=== PATIENT | female | born 1995 | race Caucasian/White ===

== ENCOUNTER 2016-08-27 19:56 | Inpatient (IN) | payer OTHER ==
[~2016-08-27] VITALS: Ht 165.1 cm; Wt 82.7 kg
[2016-08-27 20:00] VITALS: BP 112/78; PULSE 69; RESP 18; O2SAT 96
[2016-08-27 20:34] LABS: BASOPHILS % (AUTO) 0.8 % (0-3); EOSINOPHILS % (AUTO) 2.6 % (0-5); MONOCYTES % (AUTO) 9.8 % (4-12); Mean Corpuscular Hemoglobin 26.2 pg (27.0-35.0); NEUTROPHILS % (AUTO) 62.7 % (40-74); Platelet Count 393 bil/L (150-400)
[2016-08-27 20:58] LABS: Magnesium 2.1 mg/dL (1.6-2.6)
[2016-08-27 21:19] LABS: APPEARANCE,URINE CLEAR (CLEAR,HAZY); COLOR,URINE AMBER (YELLOW); OCCULT BLOOD,URINE NEGATIVE (NEGATIVE); PH,URINE 7.5 (5.0-8.0); UROBILINOGEN,URINE NORMAL (NORMAL)
[2016-08-27 21:20] LABS: ICTOTEST,URINE POSITIVE (Negative)
--- NOTE | 2016-08-27 22:00 | ED.REPORT ---
HPI-Abd Pain F Under 40 Date of Service Aug 27, 2016 ED Provider: Dr. Jason Banuelos D.O. A healthy 20 year old female one month presents to the ED with abdominal pain onset four days ago. The pain radiates to her lower back. Associated symptoms include nausea, vomiting, and decreased urination. The patient denies fever or other symptoms. Nursing Notes Stated Complaint: BACK PAIN Chief Complaint: Female Abdominal Pain Nursing Notes Reviewed: Yes Allergies: Coded Allergies: No Known Allergies (Unverified , 08/27/16) General Time Seen by MD: 22:00 Chief Complaint Abdominal pain Hx Obtained From: Patient Arrived By: Walk-in Sudden in Onset?: No Onset Occurred: 4 days ago Symptom Duration: Since onset Location: : Diffuse (Abdominal) Quality: Painful Radiation: : Back Severity: Current: Moderate Severity: Maximum: Moderate Associated with: Reports: Nausea, Vomiting : 1 Para: 1 Pertinent Negative: Relieved by nothing Recent Healthcare: Recent doctor visit, Recent hospitalization Past Medical History Past Medical History None reported Past Surgical History None reported Smoking History Unknown if Ever Smoker Social History Other Social History: Good social support, Lives with children Ambulatory Status Independent Review of Systems Constitutional: Denies: Fever Respiratory: Denies: Non-productive cough, Shortness of breath GI: Reports: Abdominal pain, Nausea, Vomiting Female: Reports: Urination decreased Musculoskeletal: Reports: Back pain (Lower) Complete sys rev & neg: except as marked. Physical Exam Initial Vital Signs Vital Signs (First) Date Time Temp Pulse Resp B/P Pulse Ox O2 Delivery O2 Flow Rate FiO2 08/27/16 20:00 36.5 69 18 112/78 96 Room Air Initial VS: Reviewed Head / Eyes: Atraumatic, Normocephalic ENT: Conjunctiva normal, No scleral icterus Neck: Supple, Full range of motion Skin: Warm, Dry, No cyanosis Neurologic: Alert, Oriented, Nonfocal Psychiatric: Mood/affect normal, Behavior normal, Normal thought content General/Constitutional: Awake, Alert Distress / Hydration: Positive: Distress moderate Respiratory / Chest: Breath sounds NL, Breath sounds = bilat, No respiratory distress Cardiovascular: Heart rate NL, Regular rhythm, Heart sounds NL Abdomen: Atraumatic, Soft, No distention Tenderness/Guarding/Rebound: Positive: Tender diffuse Back: Full range of motion, Non-tender Interpretation & Diagnostics US ABDOMEN: CONCLUSION: Choledocholithiasis with biliary dilation. Cholelithiasis. No evidence of acute cholecystitis. Transmitted to ED by radiologist Haley Emery M.D. at 08/27/2016 - 11:08:04 PM PDT ------- URINE : Negative URINE DIPSTICK: 1.000 sp gravity 7 pH Trace Protein Normal Glucose +++Moderate Ketones 4mg/dl Urobilinogen ++ Bilirubin Otherwise Negative Lab Results Interpretation Result Diagram: 08/27/16201908/27/162019 Test 08/27/16 20:20 08/27/16 20:45 08/27/16 22:22 White Blood Count 7.4th/mm3 (3.8-10.1) Red Blood Count 4.42mil/mm3 (3.90-5.20) Hemoglobin 11.6g/dL (12.0-15.6) Hematocrit 38.0% (35.0-46.0) Mean Corpuscular Volume 86.0fL (81-100) Mean Corpuscular Hemoglobin 26.2pg (27.0-35.0) Mean Corpuscular Hemoglobin Concent 30.5% (32.0-37.0) Red Cell Distribution Width 14.9% (12.3-15.4) Platelet Count 393bil/L (150-400) Neutrophils (%) (Auto) 62.7% (40-74) Lymphocytes (%) (Auto) 23.8% (14-46) Monocytes (%) (Auto) 9.8% (4-12) Eosinophils (%) (Auto) 2.6% (0-5) Basophils (%) (Auto) 0.8% (0-3) Sodium Level 141mEq/L (134-144) Potassium Level 4.0mEq/L (3.5-5.2) Chloride Level 100mEq/L (97-108) Carbon Dioxide Level 24mmol/L (18-29) Blood Urea Nitrogen 6mg/dL (6-20) Creatinine 0.52mg/dL (0.57-1.00) Estimat Glomerular Filtration Rate 218mL/min (>59) Glucose Level 100mg/dL (60-99) Calcium Level 9.6mg/dL (8.5-10.1) Magnesium Level 2.1mg/dL (1.6-2.6) Total Bilirubin 1.6mg/dL (0.0-1.2) Aspartate Amino Transf (AST/SGOT) 525U/L (0-50) Alanine Aminotransferase (ALT/SGPT) 537U/L (0-32) Alkaline Phosphatase 514U/L (25-150) Total Protein 7.6g/dL (6.4-8.4) Albumin 4.4g/dL (3.4-5.0) Lipase 29U/L (13-60) Urine Color Ronel (YELLOW) Urine Appearance Clear (CLEAR,HAZY) Urine pH 7.5 (5.0-8.0) Urine Specific [place] 1.015 (1.003-1.035) Urine Protein Tracemg/dL (NEG,TRACE) Urine Glucose (UA) 100mg/dL (NEGATIVE) Urine Ketones 40mg/dL (NEGATIVE) Urine Occult Blood Negative (NEGATIVE) Urine Nitrite Negative (NEGATIVE) Urine Bilirubin Moderate (NEGATIVE) Urine Ictotest Positive (Negative) Urine Urobilinogen Normalmg/dL (NORMAL) Urine Leukocyte Esterase Trace (NEGATIVE) Urine RBC 0-2/hpf (0-2) Urine WBC 6-10/hpf (0-5) Urine Epithelial Cells Few/hpf (NONE-MOD) Urine Crystals None seen (NONE SEEN) Urine Bacteria Few/hpf (NONE-FEW) Urine Hyaline Casts None/lpf (NONE) Urine Granular Casts None seen (NONE SEEN) Urine Waxy Casts None seen (NONE SEEN) Urine Red Blood Cell Casts None seen (NONE SEEN) Urine White Blood Cell Casts None seen (NONE SEEN) Urine Mucus Present (None Seen) Urine Trichomonas None seen (NONE SEEN) Urine Yeast None (NONE SEEN) Urinalysis Comment None Urine Culture Reflexed Not indicated HCG Beta Subunit < 0.500mIU/mL Re-Eval/Medical Decision Med Decision/Clinical Course Healthy 20-year-old female . Obstructive jaundice with a common bile duct stone. Consult with surgery appreciated. Recommends for GI and ERCP. Consult with gastroenterology and we will admit to medicine Re-Evaluation/Progress #1: Time of Eval: 22:39 Patient Status: Condition improved, Pain improved Re-Evaluation/Progress Note: Patient rechecked. Her pain has improved. Additional physical exam performed. Re-Evaluation/Progress #2: Time of Eval: 23:22 Patient Status: Condition improved, Pain resolved Re-Evaluation/Progress Note: Patient rechecked. Discussed US results and plan for surgical consult. Re-Evaluation/Progress #3: Time of Eval: 23:38 Re-Evaluation/Progress Note: Patient's pain has returned. Discussed with patient lab and US results, GI and surgical consults, diagnosis, and plan for admit. Patient agrees with plan for care and all questions were addressed. Consultation #1: Referral / Consult Name: Shahriar March MD Consulted With: Surgeon Call Returned at: 23:26 Table Saw Operator: Agrees with eval, Agrees with plan Note: Discussed patient's case. Recommends GI consult. Consultation #2: Referral / Consult Name: Lester Mackenzie MD Call Returned at: 23:35 Table Saw Operator: Will see patient, Agrees with eval, Agrees with plan Note: Discussed patient's case. Consultation #3: Referral / Consult Name: Joao Gorman MD Consulted With: Hospitalist Call Returned at: 23:47 Table Saw Operator: Agrees with eval, Agrees with plan, Accepts admit Counseled Regarding: Diagnosis, Lab results, Need for admission Discharge & Departure Primary Impression: Hepatitis Additional Impressions: Choledocholithiasis Cholelithiasis Cholelithiasis location: gallbladder and bile duct Cholecystitis presence: without cholecystitis Biliary obstruction: with biliary obstruction Qualified Code: K80.71 - Calculus of gallbladder and bile duct without cholecystitis with obstruction Disposition: ADMITTED TO HOSPITAL Discharge Condition All VS Reviewed: Yes Condition: Improved Referrals: OTHER,PHYSICIAN (PCP) (Family) Scribe Attestation Portions of this note were transcribed by Pita Faith. I, Dr. Banuelos, personally performed the history, physical exam, and medical decision-making; I reviewed and confirmed the accuracy of the information in the transcribed note. Signed by: Nadeem Marroquin, 08/28/2016, 01:05 Jason Banuelos DO Aug 27, 2016 22:00 PITA FAITH Aug 27, 2016 22:04
[2016-08-27] MEDS ORDERED: 0.9% Sodium Chloride 1,000 ML IV ONE (22:05)
[2016-08-27] MEDS: Ondansetron 2 mg/mL 2 mL Inj IVPUSH PRN (22:22)
[2016-08-27] MEDS: HYDROmorphone 0.5 mg/0.5 mL iSecure Syringe IVPUSH PRN (22:22)
[2016-08-27] MEDS ORDERED: Piperacillin-Tazo 3.375 Gm Inj 3.375 GM in Dextrose 5% Minibag Plus 50 ML IV ONE (23:50)
[2016-08-28] VITALS (11 sets, daily range): BP systolic 92–125; BP diastolic 53–74; PULSE 50–73; RESP 12–20; O2SAT 64–98
[2016-08-28] MEDS ORDERED: Alum-Mag Hydrox-Simeth 30 mL Suspension PO PRN (00:05)
[2016-08-28] MEDS ORDERED: Ondansetron 2 mg/mL 2 mL Inj IVPUSH PRN ×2 (00:05→14:10)
[2016-08-28] MEDS ORDERED: Polyethylene Glycol (PEG) 17 Gm Powder PO PRN (00:05)
[2016-08-28] MEDS: 0.9% Sodium Chloride 1,000 ML IV SCH ×3 (01:05→11:45)
--- NOTE | 2016-08-28 01:45 | PCM.HPMED ---
Subjective Date of Service Aug 28, 2016 Primary Provider: Admitting Physician: Joao Gorman MD Primary Care Physician: Other,Physician Attending Physician: Joao Gorman MD Admit Status: From the Emergency Department Chief Complaint: RUQ abdominal pain with radiation to back. History of Present Illness: Very pleasant 20yo s/p childbirth 4 weeks ago, , uneventful and , started having some nausea and vomiting along with RUQ and right- sided back pain about two weeks ago, started worsening 4 days ago and she came to the ER with her mother. The baby is doing well and she is . This pain she reports is worse than childbirth. In the ER she was found to have normal vital signs, transaminitis, and cholelithiasis/choledocholithiasis on abdominal ultrasound. UA is negative except for bilirubin. Dr Mackenzie will do an ERCP tomorrow. Dr March has been consulted in the case of need for surgery. Her pain is well managed now with Morphine. Review of Systems: Complete ROS is otherwise negative except as noted above in the HPI. Allergies Coded Allergies: No Known Allergies (Unverified , 08/27/16) Home Medications None PMH None Surgical History None Family History Father is alive and well, has HTN Mother is a year survivor of Lymphoma Social History Hx Alcohol Use: Yes ("a lot" about a year ago. 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 She quit with family intervention before her ) Smoking Status: Former Smoker (quit a year ago) Exam Vital Signs Vital Sign - Last Date Time Temp Pulse Resp B/P Pulse Ox O2 Delivery O2 Flow Rate FiO2 08/28/16 01:07 36.5 61 18 98/59 96 Room Air Intake and Output 08/27/16 08/27/16 08/28/16 Cumulative From/Thru 15:00 23:00 07:00 08/27/16 20:00 - 08/28/16 01:07 Intake Total 1000 ml 1000 ml Balance 1000 ml 1000 ml Intake IV Total 1000 ml 1000 ml Exam General: Alert, Oriented X3, Cooperative, No Acute Distress Head: Normocephalic, atraumatic. External ears normal. Eyes: PERRLA, EOMI. Anicteric sclerae. Mouth: Mouth Normal, Mucous Membranes Moist/[place] Neck: Neck supple with full range of motion. Chest & Lungs: Clear to auscultation bilaterally with no crackles, wheezes, or rhonchi. Cardiovascular: Regular Rate/Rhythm, Normal S1, Normal S2, No Murmurs/Rubs/ Gallops Abdomen: Non-tender, Non-distended, No masses, Normoactive bowel tones, Soft Musculoskeletal: Normal Range of Motion Extremities: No cyanosis/clubbing/edema bilaterally Neurological: Grossly Neurologically Intact, Cranial Nerves 2-12 Intact, Normal Speech Lab and Diagnostics Labs Laboratory Tests Test 08/27/16 20:20 08/27/16 20:45 08/27/16 22:22 White Blood Count 7.4th/mm3 (3.8-10.1) Red Blood Count 4.42mil/mm3 (3.90-5.20) Hemoglobin 11.6g/dL (12.0-15.6) Hematocrit 38.0% (35.0-46.0) Mean Corpuscular Volume 86.0fL (81-100) Mean Corpuscular Hemoglobin 26.2pg (27.0-35.0) Mean Corpuscular Hemoglobin Concent 30.5% (32.0-37.0) Red Cell Distribution Width 14.9% (12.3-15.4) Platelet Count 393bil/L (150-400) Neutrophils (%) (Auto) 62.7% (40-74) Lymphocytes (%) (Auto) 23.8% (14-46) Monocytes (%) (Auto) 9.8% (4-12) Eosinophils (%) (Auto) 2.6% (0-5) Basophils (%) (Auto) 0.8% (0-3) Sodium Level 141mEq/L (134-144) Potassium Level 4.0mEq/L (3.5-5.2) Chloride Level 100mEq/L (97-108) Carbon Dioxide Level 24mmol/L (18-29) Blood Urea Nitrogen 6mg/dL (6-20) Creatinine 0.52mg/dL (0.57-1.00) Estimat Glomerular Filtration Rate 218mL/min (>59) Glucose Level 100mg/dL (60-99) Calcium Level 9.6mg/dL (8.5-10.1) Magnesium Level 2.1mg/dL (1.6-2.6) Total Bilirubin 1.6mg/dL (0.0-1.2) Aspartate Amino Transf (AST/SGOT) 525U/L (0-50) Alanine Aminotransferase (ALT/SGPT) 537U/L (0-32) Alkaline Phosphatase 514U/L (25-150) Total Protein 7.6g/dL (6.4-8.4) Albumin 4.4g/dL (3.4-5.0) Lipase 29U/L (13-60) Urine Color Ronel (YELLOW) Urine Appearance Clear (CLEAR,HAZY) Urine pH 7.5 (5.0-8.0) Urine Specific [place] 1.015 (1.003-1.035) Urine Protein Tracemg/dL (NEG,TRACE) Urine Glucose (UA) 100mg/dL (NEGATIVE) Urine Ketones 40mg/dL (NEGATIVE) Urine Occult Blood Negative (NEGATIVE) Urine Nitrite Negative (NEGATIVE) Urine Bilirubin Moderate (NEGATIVE) Urine Ictotest Positive (Negative) Urine Urobilinogen Normalmg/dL (NORMAL) Urine Leukocyte Esterase Trace (NEGATIVE) Urine RBC 0-2/hpf (0-2) Urine WBC 6-10/hpf (0-5) Urine Epithelial Cells Few/hpf (NONE-MOD) Urine Crystals None seen (NONE SEEN) Urine Bacteria Few/hpf (NONE-FEW) Urine Hyaline Casts None/lpf (NONE) Urine Granular Casts None seen (NONE SEEN) Urine Waxy Casts None seen (NONE SEEN) Urine Red Blood Cell Casts None seen (NONE SEEN) Urine White Blood Cell Casts None seen (NONE SEEN) Urine Mucus Present (None Seen) Urine Trichomonas None seen (NONE SEEN) Urine Yeast None (NONE SEEN) Urinalysis Comment None Urine Culture Reflexed Not indicated HCG Beta Subunit < 0.500mIU/mL Result Diagram: 08/27/16201908/27/162019 Additional Diagnostics: Abdominal US read in the ER: Cholelithiasis location: gallbladder and bile duct Assessment & Plan Very pleasant 20yo s/p childbirth 4 weeks ago, , uneventful and , started having some nausea and vomiting along with RUQ and right- sided back pain about two weeks ago, started worsening 4 days ago and she came to the ER with her mother. The baby is doing well and she is . This pain she reports is worse than childbirth. In the ER she was found to have normal vital signs, transaminitis, and cholelithiasis/choledocholithiasis on abdominal ultrasound. UA is negative except for bilirubin. Dr Mackenzie will do an ERCP tomorrow. Dr March has been consulted in the case of need for surgery. Her pain is well managed now with Morphine. 1. Transaminitis and cholangitis secondary to Cholelithiasis/choledocholithiasis , POA. -ERCP tomorrow, GI already on board. -Surgery notified and aware of patient -Pain well managed with Morphine 1-2mg IV q4h PRN -Dilaudid 0.5mg IV q15min PRN for breakthrough pain -NPO after midnight -NS 100mls/hr IV -Zosyn 3.375gm IV given once in the ER 2. Patient concern about her -Morphine and Zosyn are both safe for PRN medications available for nausea, heartburn, constipation: Ondansetron 4mg IV q15min and PO, Maalox, Senna, Miralax Patient is admitted under inpatient status with expected length of stay greater than 2 midnights due to severity of presenting symptoms, risk of adverse event, and complexity of treatment plan. Pain Evaluation: Adequate Pain Control GI Prophylaxis: Not indicated VTE Prophylaxis: Other (Hold anticoagulation for procedure/surgery tomorrow) Resuscitation Status: CPR: Attempt Resuscitation Attending Statement The patient was seen and examined together with Dr. Argueta on 08/27 and I agree with the history, exam and plan as outlined in the note above. Neo Argueta DO Aug 28, 2016 01:45 Joao Gorman MD Aug 28, 2016 02:47
--- NOTE | 2016-08-28 02:41 | NUR ---
Admit Patient arrived to room 1009 around 0100. Able to stand and walk to [facility] bed. Gait steady. Denied pain/discomfort upon arrival. IV patent and infusing. Mom at bedside. Admit and med rec completed with patient and patient's mom, states does not take any home meds. Oriented to room and call light.
[2016-08-28 06:05] LABS: BASOPHILS % (AUTO) 1.4 % (0-3); EOSINOPHILS % (AUTO) 2.4 % (0-5); MONOCYTES % (AUTO) 12.2 % (4-12); Mean Corpuscular Hemoglobin 26.4 pg (27.0-35.0); Mean Corpuscular Volume 87.3 fL (81-100); NEUTROPHILS % (AUTO) 42.5 % (40-74); Platelet Count 318 bil/L (150-400)
[2016-08-28] MEDS: Ondansetron 2 mg/mL 2 mL Inj IVPUSH PRN ×2 (10:01→15:55)
--- NOTE | 2016-08-28 10:27 | DRSVH ---
PROCEDURE: US ABDOMEN, LIMITED ([id number]) INDICATIONS: abdominal pain, RUQ, hepatitis TECHNIQUE: Real-time focused scanning was performed of the abdomen, with image documentation. COMPARISON: None. FINDINGS: Small mobile gallstones are present in the gallbladder wall is normal measuring 1.8 mm. Th e extrahepatic common bile duct is dilated measuring 9.4 mm and a 4 mm common bile duct stone noted. IMPRESSION: 1. Cholelithiasis without evidence for cholecystitis. 2. Choledocholithiasis with associated extrahepatic bile duct dilatation. Note: These findings are concordant with the preliminary interpretation. Dictated by: Perez ALVAREZ Interpreted: Kate Lynn MD on 08/28/2016 at 10:24 Transcribed by: MAURI on 08/28/2016 at 10:26 Approved by: Kate Lynn M.D. on 08/30/2016 at 10:02
[2016-08-28] MEDS ORDERED: Ondansetron 2 mg/mL 2 mL Inj ONE (10:43)
[2016-08-28] MEDS ORDERED: EPHEDrine/NS 5 mg/mL 5 mL Syringe ONE (10:43)
[2016-08-28] MEDS ORDERED: Propofol 10,000 mCg/mL 20 mL Inj ONE (10:43)
[2016-08-28] MEDS ORDERED: Dexamethasone 4 mg/mL Inj ONE (10:43)
[2016-08-28] MEDS ORDERED: Succinylcholine Chloride 20 mg/mL 5 mL Inj ONE (10:43)
[2016-08-28] MEDS ORDERED: fentaNYL-PF 50 mCg/mL 2 mL Inj ONE ×3 (10:43→14:10)
--- NOTE | 2016-08-28 12:00 | NUR ---
pain pt still having quite a lot of pain at times, sometimes 8/10, abd and back, getting MS IV, also trying Kpad for discomfort
--- NOTE | 2016-08-28 13:23 | NUR ---
pt is in endoscopy Addendum: 08/28/16 at 1323 by ADRIENNE DAVIS CNA Amended: Links added.
[2016-08-28] MEDS ORDERED: Lactated Ringer's 500 ML IV PRN (14:06)
[2016-08-28] MEDS ORDERED: Lactated Ringer's 1,000 ML IV SCH (14:06)
--- NOTE | 2016-08-28 14:06 | PCM.HPANE ---
Patient Data Date of Service: Aug 28, 2016 Surgeon Admitting Provider:Joao Gorman MD Attending Provider:Joao Gorman MD Primary Care Physician:Other,Physician Other Provider: Reason for Visit Acute Obstructive Hepatitis W Choledochlolithiasis Ht/WT & BMI Height (Feet): 5 Height (Inches): 5.00 Weight (Kilograms): 82.700 Body Mass Index 30.00 Allergies Coded Allergies: No Known Allergies (Unverified , 08/27/16) Past Anesthesia History Anesthesia History: Denies:: Abnormal Airway, Anesthesia Reactions, Difficult Intubation, Fam Anesthesia Reaction, Fam Malignant Hypertherm, Malignant Hyperthermia Diabetes History Hx Diabetes?: No MRSA MRSA: No Medications Hypertension Medication: No Home Meds Incl Beta Chante: No No Active Prescriptions or Reported Meds History History of ENT Problems?: Yes HEENT History: Positive for:: Sinus Problem (seasonal allergies ) Denies:: Abnormal Airway Cataracts Difficult Intubation Dysphagia Glaucoma Hearing Problem TMJ Denture Type: None Teeth Condition: Within Normal Limits Hx of Heart Problems?: No Cardiovascular History: Denies:: Congestive Heart Failure Hypertension Hx of Respiratory Problem?: No Respiratory History: Denies:: Tuberculosis Hx Neurologic Problems?: No Hx of GI Problems?: Yes Gastrointestinal History: Positive for:: Gall Bladder Disease Hx of Problems?: No Female Hx: Denies:: Currently Endometriosis Pelvic Inflammatory Problems with Breasts? Hx Musculoskeletal Problems?: No Hx of Psycho/Social Problems?: Yes Psycho Social History: Positive for:: Anxiety Hx Depression Denies:: Bipolar Disorder Suicide Attempt Hx Surgeries?: No Hx Any Other Health Problems?: Yes Other History: Positive for:: Hospitalization ( ) Denies:: Cancer Thyroid Disease History Blood Transfusions: Positive for:: Accept Blood Products? Denies:: Blood Transfusions Hx Diabetes: No Hx Alcohol Use: Yes ("a lot" about a year ago. )Hx Substance Use: Yes (meth, cocaine, marijuana over a year ago. She quit with family intervention before her ) Smoking Status: Former Smoker Have You Smoked inLast 12 mo: YesApprox How Many Cigarettes/day: 4/5 Stop/Bang Treated for Sleep Apnea?: No Do You Have a CPAP Machine?: No S-Snoring: Do You Snore Loudly: No T-Tired: feel tired, fatigued: No O-Obsered: Observed not breath: No P-Blood Pressure: treated: No B- Body Mass Index > 35 kg/m2: No A- Age over 50: No N- Neck Large Circumference: No G- Gender Male: No TREMAINE Total Score: 0 TREMAINE Risk Assessment: Low Risk, <3 Yes Risk Assessment Category Category 1A: Patient has history of documented sleep apnea, and HAS NOT received any narcotic, sedative or anesthesia administration during this stay. Category 1B: Patient has history of documented sleep apnea, and HAS received any narcotic , sedative or anesthesia administration during this stay Category 2: Patient has SUSPECTED Obstructive Sleep Apnea, and HAS received any narcotic , sedative or anesthesia administration during this stay. Category 3: Patient has SUSPECTED Obstructive Sleep Apnea and HAS NOT received narcotic, sedative or anesthesia administration during this stay. Category 4: Outpatient in Procedural Areas with known sleep apnea or who screen positive for High Risk via the STOP/BANG questionnaire. Exam Exam Vital Signs Vital Signs Date Time Temp Pulse Resp B/P Pulse Ox O2 Delivery O2 Flow Rate FiO2 08/28/16 13:24 36.6 50 12 108/68 98 Room Air General Appearance: Alert, Oriented X3, Cooperative, No Acute Distress HEENT/AIRWAY: MP 2 Lungs: Clear to Auscultation Heart: Exam Unremarkable, Regular Rate/Rhythm, Normal S1, Normal S2, No Murmurs /Rubs/Gallops Meds/Labs/Diagnostics Admission Meds Current Medications Sodium Chloride 1,000 ml @ 0 mls/hr Q0M ONCE IV Last administered on 22:22; Start 08/27/16 at 22:05; Stop 08/27/16 at 22:12; Status DC Piperacillin Sod/ Tazobactam Sod 3.375 gm/Dextrose/ Water 50 ml @ 100 mls/hr ONCE ONCE IV Last administered on 08/28/16 00:16; Start 08/27/16 at 23:50; Stop 08/28/16 at 00:19; Status DC Sodium Chloride (Normal Saline) 1,000 ml @ 100 mls/hr Q10H IV Last administered on 08/28/16 11:45; Start 08/28/16 at 00:01 Labs Test 08/27/16 20:20 08/27/16 20:45 08/27/16 22:22 08/28/16 05:33 Magnesium Level 2.1mg/dL (1.6-2.6) Lipase 29U/L (13-60) Urine Color [place]onel (YELLOW) Urine Appearance Clear (CLEAR,HAZY) Urine pH 7.5 (5.0-8.0) Urine Specific [place] 1.015 (1.003-1.035) Urine Protein Tracemg/dL (NEG,TRACE) Urine Glucose (UA) 100mg/dL (NEGATIVE) Urine Ketones 40mg/dL (NEGATIVE) Urine Occult Blood Negative (NEGATIVE) Urine Nitrite Negative (NEGATIVE) Urine Bilirubin Moderate (NEGATIVE) Urine Ictotest Positive (Negative) Urine Urobilinogen Normalmg/dL (NORMAL) Urine Leukocyte Esterase Trace (NEGATIVE) Urine RBC 0-2/hpf (0-2) Urine WBC 6-10/hpf (0-5) Urine Epithelial Cells Few/hpf (NONE-MOD) Urine Crystals None seen (NONE SEEN) Urine Bacteria Few/hpf (NONE-FEW) Urine Hyaline Casts None/lpf (NONE) Urine Granular Casts None seen (NONE SEEN) Urine Waxy Casts None seen (NONE SEEN) Urine Red Blood Cell Casts None seen (NONE SEEN) Urine White Blood Cell Casts None seen (NONE SEEN) Urine Mucus Present (None Seen) Urine Trichomonas None seen (NONE SEEN) Urine Yeast None (NONE SEEN) Urinalysis Comment None Urine Culture Reflexed Not indicated HCG Beta Subunit < 0.500mIU/mL White Blood Count 5.8th/mm3 (3.8-10.1) Red Blood Count 4.02mil/mm3 (3.90-5.20) Hemoglobin 10.6g/dL (12.0-15.6) Hematocrit 35.1% (35.0-46.0) Mean Corpuscular Volume 87.3fL (81-100) Mean Corpuscular Hemoglobin 26.4pg (27.0-35.0) Mean Corpuscular Hemoglobin Concent 30.2% (32.0-37.0) Red Cell Distribution Width 14.9% (12.3-15.4) Platelet Count 318bil/L (150-400) Neutrophils (%) (Auto) 42.5% (40-74) Lymphocytes (%) (Auto) 41.2% (14-46) Monocytes (%) (Auto) 12.2% (4-12) Eosinophils (%) (Auto) 2.4% (0-5) Basophils (%) (Auto) 1.4% (0-3) Sodium Level 143mEq/L (134-144) Potassium Level 4.0mEq/L (3.5-5.2) Chloride Level 106mEq/L (97-108) Carbon Dioxide Level 23mmol/L (18-29) Blood Urea Nitrogen 5mg/dL (6-20) Creatinine 0.54mg/dL (0.57-1.00) Estimat Glomerular Filtration Rate 208mL/min (>59) Glucose Level 83mg/dL (60-99) Calcium Level 8.8mg/dL (8.5-10.1) Total Bilirubin 0.7mg/dL (0.0-1.2) Aspartate Amino Transf (AST/SGOT) 502U/L (0-50) Alanine Aminotransferase (ALT/SGPT) 496U/L (0-32) Alkaline Phosphatase 446U/L (25-150) Total Protein 6.1g/dL (6.4-8.4) Albumin 3.9g/dL (3.4-5.0) Plan Impression Patient chart reviewed, patient interviewed and anesthestic plan with risks, benefits, and alternatives discussed, and informed consent obtained. NPO per Anesth. Guidelines: Yes ASA Physical Status: ASA2 Mod Systemic Disease Anesthetic Plan: GA Bene/Risks/Altern/Consents: Yes HP Complete Prior to Induction: Yes Kin Taylor MD Aug 28, 2016 14:06
[2016-08-28] MEDS ORDERED: HYDROmorphone 1 mg/mL Inj IVPUSH PRN (14:10)
[2016-08-28] MEDS ORDERED: Labetalol 5 mg/mL 4 mL Inj IV PRN (14:10)
[2016-08-28] MEDS ORDERED: EPHEDrine Sulfate 50 mg/mL Inj IVPUSH PRN (14:10)
--- NOTE | 2016-08-28 16:38 | PCM.CHPMED ---
Subjective Date of Service: Aug 28, 2016 Primary Physician: Admitting Physician: Joao Gorman MD Primary Care Physician: Other,Physician Attending Physician: Joao Gorman MD Admit Status: From the Emergency Department, Non-Telemetry Chief Complaint: Chief Complaint: Reason for consult: RUQ pain with transaminitis and choledocholithiasis History of Present Illness: GASTROENTEROLOGY CONSULTATION: Trinh Powell is a 20yo woman with no significant PMH who presented with worsening right-sided back pain and RUQ abdominal pain. She reports to have intermittent back pain throughout the 3rd trimester, but she assumed it was contractions. She had a childbirth 4 weeks ago, , uneventful and . However, the back pain and abdominal pain has progressively worsened in the last 2 weeks. The back pain is worse than the abdominal pain. It is also associated with nausea, vomiting, and poor appetite. Patient states that she cannot eat anything without feeling nauseous or vomiting in the last 4 days. This pain she reports is worse than childbirth. Patient denies any fever, chills , jaundice, CP, hematemesis, hematochezia, diarrhea, or constipation. She does not take any medication and denies NSAIDs use. In the ER she was found to have normal vital signs, but labs revealed transaminitis (AST 525, ALT 537, Alk Phos 514). Total Bili was 1.6 on admission. Lipase 29. Abdominal U/S showed Cholelithiasis without evidence for cholecystitis and Choledocholithiasis with associated extrahepatic bile duct dilatation. GI service was consulted for an ERCP. Review of Systems: Constitutional: Denies: Chills, Fever, Weakness Eyes: Denies: Blurred Vision, Conjunctive Inflammation ENT: Denies: Ulcers/Sores in Mouth Neck: Denies: Pain, Swelling Cardiovascular: Denies: Chest Pain, Irregular Heart Rate, Palpitations Respiratory: Denies: Cough, Cough with bloody sputum, SOB with Exertion, Shortness of Breath Gastrointestinal: Reports: Abdominal Pain, Change in Appetite, Constipation, Nausea, Vomiting, Denies: Black tarry stools, Blood in stool (red), Diarrhea, Heartburn Genitourinary: Reports: No burning or pain with urination, Denies: Dysuria, Hematuria, Nocturia Reproductive Female: Reports: /Para () Skin: Denies: Bruising Neurological: Denies: Change in LOC, Confusion, Dizziness, Seizures PMH Past Medical History Patient denies Surgical History None per the patient Home Medications None. Allergies: Coded Allergies: No Known Allergies (Unverified , 08/27/16) Family History Family History Mother with cholecystectomy and Lymphoma, alive. Father has HTN. Social History Hx Alcohol Use: Yes (history of daily drinking until a year ago)Hx Substance Use: Yes (meth, cocaine, marijuana over a year ago. She quit with family intervention before her ) Smoking Status: Former Smoker (used to smoke 4-6 cigarettes/day but quit a year ago) Living Arrangement: with Family Exam Vital Signs Vital Sign - Last Date Time Temp Pulse Resp B/P Pulse Ox O2 Delivery O2 Flow Rate FiO2 08/28/16 15:57 36.6 62 18 105/70 94 Room Air 08/28/16 15:25 2 Intake and Output 08/27/16 08/27/16 08/28/16 Cumulative From/Thru 15:00 23:00 07:00 08/27/16 20:00 - 08/28/16 05:26 Intake Total 1000 ml 426 ml 1426 ml Balance 1000 ml 426 ml 1426 ml Intake IV Total 1000 ml 426 ml 1426 ml Additional Information: Exam was done after ERCP General: Alert, Oriented X3, Cooperative, No Acute Distress Head: Normocephalic, atraumatic. External ears normal. Eyes: PERRLA, EOMI. Anicteric sclerae. Mouth: Mouth Normal, Mucous Membranes Moist/[place] Neck: Neck supple with full range of motion. Chest & Lungs: Clear to auscultation bilaterally with no crackles, wheezes, or rhonchi. Cardiovascular: Regular Rate/Rhythm, Normal S1, Normal S2, No Murmurs/Rubs/ Gallops Abdomen: Soft, Non-tender, Non-distended, No masses, Normoactive bowel tones. Negative Escobar's sign. Extremities: No cyanosis/clubbing/edema bilaterally Neurological: Normal Speech. Moving all extremities. Psych: Appears to be depressed with restricted affect. Lab and Diagnostics Result Diagram: 08/28/1653208/28/16532 X-Rays, CTs and MRIs PROCEDURE: US ABDOMEN, LIMITED IMPRESSION: 1. Cholelithiasis without evidence for cholecystitis. 2. Choledocholithiasis with associated extrahepatic bile duct dilatation. Note: These findings are concordant with the preliminary interpretation. Dictated by: Perez Holland RRA Interpreted: Kate Lynn MD on 08/28/2016 at 10: 24 Transcribed by: MAURI on 08/28/2016 at 10:26 Assessment & Plan Assessment This is a 20yo woman s/p childbirth 4 weeks ago who presented with worsening right-sided back pain and RUQ abdominal pain in the last 2 weeks. Patient was found to have Cholelithiasis without evidence for cholecystitis and Choledocholithiasis with associated extrahepatic bile duct dilatation on abdominal U/S. She also had markedly elevated LFTs that is likely secondary to choledocholithiasis and cholelithiasis. Impressions: 1. Cholelithiasis without evidence for cholecystitis 2. Choledocholithiasis with associated extrahepatic bile duct dilatation Recommendations: - NPO to prepare for ERCP today. - Plan for ERCP to remove the stone this afternoon. See report for details. - We agree with empiric antibiotic treatment with Zosyn. - We recommend surgery consult for possible cholecystectomy. - Pain management and fluid resuscitation per the primary care team. Thank you for allowing us participate in this patient's care. Do not hesitate to contact us for any question or concern. Problems: Pain Evaluation: Adequate Pain Control GI Prophylaxis: Not indicated VTE Prophylaxis: Other (Hold anticoagulation for procedure/surgery ) Resuscitation Status: CPR: Attempt Resuscitation Attending Statement pt seen and examined with resident physician agree with her H and P above 20 y/o woman psot presenting with abdominal pain, cholestatic LFT's and USG with biliary dilation, choledocholithiasis and cholelithiasis discussed findings of labs, USG with patient and recommended ERCP. Risks and benefits of ERCP discussed and she is agreeable to proceed. Plan for ERCP today. Donnie Gamez DO Aug 28, 2016 16:38 Lester Mackenzie MD Aug 31, 2016 10:40
--- NOTE | 2016-08-28 18:24 | PCM.PNMED ---
Subjective Date of Service Aug 28, 2016 Subjective no complaints Exam Vital Signs Vital Sign - Last Date Time Temp Pulse Resp B/P Pulse Ox O2 Delivery O2 Flow Rate FiO2 08/28/16 15:57 36.6 62 18 105/70 94 Room Air 08/28/16 15:25 2 Intake and Output 08/27/16 08/27/16 08/28/16 Cumulative From/Thru 15:00 23:00 07:00 08/27/16 20:00 - 08/28/16 05:26 Intake Total 1000 ml 426 ml 1426 ml Balance 1000 ml 426 ml 1426 ml IV Total 1000 ml 426 ml 1426 ml Exam General: Alert and oriented, no acute distress Heart: Regular Lungs: Clear Abdomen: Soft, non-tender Extremities: No pedal edema IVs and Medications Medications Reviewed: Medications were reviewed in detail Lab and Diagnostics Result Diagram: 08/28/1653208/28/16532 Additional Diagnostics Abdominal US read in the ER: Cholelithiasis location: gallbladder and bile duct Assessment & Plan Very pleasant 20yo s/p childbirth 4 weeks ago, , uneventful and , started having some nausea and vomiting along with RUQ and right- sided back pain about two weeks ago, started worsening 4 days ago and she came to the ER with her mother. The baby is doing well and she is . This pain she reports is worse than childbirth. In the ER she was found to have normal vital signs, transaminitis, and cholelithiasis/choledocholithiasis on abdominal ultrasound. UA is negative except for bilirubin. Dr Mackenzie will do an ERCP tomorrow. Dr March has been consulted in the case of need for surgery. Her pain is well managed now with Morphine. 1. Transaminitis and cholangitis secondary to Cholelithiasis/choledocholithiasis , POA. -ERCP done, no note yet. -Surgery notified and aware of patient, no consult yet, per nurse GI was going to discuss with them -Pain well managed with Morphine 1-2mg IV q4h PRN -Dilaudid 0.5mg IV q15min PRN for breakthrough pain -currently on clear liquids per GI -NS 100mls/hr IV -Zosyn 3.375gm IV given once in the ER 2. Patient concern about her -Morphine and Zosyn are both safe for PRN medications available for nausea, heartburn, constipation: Ondansetron 4mg IV q15min and PO, Maalox, Senna, Miralax Patient is admitted under inpatient status with expected length of stay greater than 2 midnights due to severity of presenting symptoms, risk of adverse event, and complexity of treatment plan. GI Prophylaxis: Not indicated VTE Prophylaxis: Other (Hold anticoagulation for procedure/surgery ) Resuscitation Status: CPR: Attempt Resuscitation Aminata Tucker MD Aug 28, 2016 18:24
[2016-08-28] MEDS: HYDROmorphone 0.5 mg/0.5 mL iSecure Syringe IVPUSH PRN (19:43)
--- NOTE | 2016-08-28 22:55 | ENDO ---
[address] [address] ENDOSCOPY PROCEDURE PATIENT: REGINA RICHMOND : 1995 MR#: [id number] ADMIT: 08/28/2016 JOB ID: [id number] DATE OF PROCEDURE: PROCEDURE: Endoscopic retrograde cholangiopancreatography. INDICATION: Choledocholithiasis and abnormal liver function tests. SEDATION: The patient's ASA classification, Mallampati score, and medications as per anesthesia report. INSTRUMENT USED: [id number]. PROCEDURE DETAILS: After informed consent was obtained, the patient was brought into the GI suite, where she was placed on oxygen via nasal cannula and monitored with continuous pulse oximeter, telemetry, and blood pressure monitoring. A time-out was performed, then she was placed under general anesthesia, and then placed in the standard ERCP position. The side-viewing duodenal scope was then introduced through the bite block and advanced without difficulty to the second portion of the duodenum. The ampulla was identified and appeared unremarkable. Using an Olympus UPR-OnlineverCut tome, we initially gained access into the pancreatic duct. This was evident as the wire that we passed went toward the midline. No contrast was injected into the pancreatic duct. The tome was then withdrawn and then redirected into the common bile duct. Initial cholangiogram revealed an approximately 9 mm common bile duct with what appeared to be a filling defect in the distal common bile duct measuring approximately 5 mm. The intrahepatic filled and appeared unremarkable. I did not appreciate any filling of the cystic duct or gallbladder. The intrahepatic ducts appeared unremarkable. Next, a moderate sized sphincterotomy was performed. Following this, a balloon catheter was then advanced into the common bile duct and a balloon sweep was performed, which extruded an approximately 5 mm Dora type cholesterol stone. Two additional sweeps were performed and no further stones were extracted. Final cholangiogram demonstrated no further filling defects. IMPRESSION: Endoscopic retrograde cholangiopancreatography status post sphincterotomy with balloon sweep and stone extraction. RECOMMENDATIONS: 1. General Surgery consult for cholecystectomy. 2. Start clear liquid diet and further plans as per the floor team. 3. Follow LFTs. COMPLICATIONS: None. ESTIMATED BLOOD LOSS: Zero. MTDD
[2016-08-29] VITALS (15 sets, daily range): BP systolic 89–115; BP diastolic 49–69; PULSE 50–94; RESP 16–21; O2SAT 95–100
[2016-08-29] MEDS: Ondansetron 2 mg/mL 2 mL Inj IVPUSH PRN ×5 (00:04→23:56)
[2016-08-29] MEDS: HYDROmorphone 0.5 mg/0.5 mL iSecure Syringe IVPUSH PRN ×4 (00:04→20:06)
[2016-08-29] MEDS: 0.9% Sodium Chloride 1,000 ML IV SCH ×2 (00:40→10:55)
[2016-08-29 06:11] LABS: Bilirubin, Direct 0.2 mg/dL (0.0-0.3)
--- NOTE | 2016-08-29 06:11 | NUR ---
Pain/Activity Rating ABD/back pain as an 8/10 most of shift. Receiving Morphine 2mg IVP and Dilaudid 0.5mg IVP for breakthrough with effective results. Noted to be resting with eyes closed upon reassessments. Up independently to BR. Gait steady. Denies lightheadedness/dizziness.
--- NOTE | 2016-08-29 10:08 | PCM.PNMED ---
Subjective Date of Service Aug 29, 2016 Subjective No complaints, is really hoping she can get her gallbladder out during this hospital stay. Exam Vital Signs Vital Sign - Last Date Time Temp Pulse Resp B/P Pulse Ox O2 Delivery O2 Flow Rate FiO2 08/29/16 07:56 36.6 54 16 99/61 95 Room Air 08/28/16 15:25 2 Intake and Output 08/28/16 08/28/16 08/29/16 Cumulative From/Thru 15:00 23:00 07:00 08/27/16 20:00 - 08/29/16 05:41 Intake Total 500 ml 470 ml 1755 ml 4151 ml Output Total 750 ml 1050 ml 1800 ml Balance 500 ml -280 ml 705 ml 2351 ml Intake Oral 320 ml 733 ml 1053 ml IV Total 500 ml 150 ml 1022 ml 3098 ml Output Urine Total 750 ml 1050 ml 1800 ml # Bowel Movements 0 0 Exam General: Alert and oriented, no acute distress Heart: Regular Lungs: Clear Abdomen: Soft, non-tender Extremities: No pedal edema IVs and Medications Medications Reviewed: Medications were reviewed in detail Lab and Diagnostics Result Diagram: 08/28/16 0533 08/28/16532 Additional Diagnostics Abdominal US read in the ER: Cholelithiasis location: gallbladder and bile duct Assessment & Plan Very pleasant 20yo s/p childbirth 4 weeks ago, , uneventful and , started having some nausea and vomiting along with RUQ and right- sided back pain about two weeks ago, started worsening 4 days ago and she came to the ER with her mother. The baby is doing well and she is . This pain she reports is worse than childbirth. In the ER she was found to have normal vital signs, transaminitis, and cholelithiasis/choledocholithiasis on abdominal ultrasound. UA is negative except for bilirubin. 1. Transaminitis and cholangitis secondary to Cholelithiasis/choledocholithiasis , POA. -ERCP done -Surgery by Dr Hairston today who feels it's likely he will do kai this afternoon -Pain well managed with Morphine 1-2mg IV q4h PRN -Dilaudid 0.5mg IV q15min PRN for breakthrough pain -was on clear liquids per GI but changed to NPO this am -NS 100mls/hr IV -Zosyn 3.375gm IV given once in the ER 2. Patient concern about her , is using breast pump PRN medications available for nausea, heartburn, constipation: Ondansetron 4mg IV q15min and PO, Maalox, Senna, Miralax Patient is admitted under inpatient status with expected length of stay greater than 2 midnights due to severity of presenting symptoms, risk of adverse event, and complexity of treatment plan. GI Prophylaxis: Not indicated VTE Prophylaxis: Other (Hold anticoagulation for procedure/surgery ) Resuscitation Status: CPR: Attempt Resuscitation Aminata Tucker MD Aug 29, 2016 10:08
--- NOTE | 2016-08-29 11:10 | PCM.PNMED ---
Subjective Date of Service Aug 29, 2016 Subjective GASTROENTEROLOGY PROGRESS NOTE: Patient reports persistent RUQ and right-sided back pain that only improves with pain medication. The pain is worse when she wakes up in the morning. She denies any nausea, vomiting, fever, or chills. Patient would like to have her gallbladder removed. Otherwise, she has no complaint today. Her LFTs significantly improve today Exam Vital Signs Vital Sign - Last Date Time Temp Pulse Resp B/P Pulse Ox O2 Delivery O2 Flow Rate FiO2 08/29/16 07:56 36.6 54 16 99/61 95 Room Air 08/28/16 15:25 2 Intake and Output 08/28/16 08/28/16 08/29/16 Cumulative From/Thru 15:00 23:00 07:00 08/27/16 20:00 - 08/29/16 05:41 Intake Total 500 ml 470 ml 1755 ml 4151 ml Output Total 750 ml 1050 ml 1800 ml Balance 500 ml -280 ml 705 ml 2351 ml Intake Oral 320 ml 733 ml 1053 ml IV Total 500 ml 150 ml 1022 ml 3098 ml Output Urine Total 750 ml 1050 ml 1800 ml # Bowel Movements 0 0 Exam General: Alert, Oriented X3, Cooperative, No Acute Distress Head: Normocephalic, atraumatic. External ears normal. Eyes: PERRLA, EOMI. Anicteric sclerae. Mouth: Mouth Normal, Mucous Membranes Moist/[place] Neck: Neck supple with full range of motion. Chest & Lungs: Clear to auscultation bilaterally with no crackles, wheezes, or rhonchi. Cardiovascular: Regular Rate/Rhythm, Normal S1, Normal S2, No Murmurs/Rubs/ Gallops Abdomen: Soft, Non-distended, No masses. Moderate tenderness to palpation in the RUQ. Positive Escobar's sign. Normoactive bowel tones. Extremities: No cyanosis/clubbing/edema bilaterally Neurological: Normal Speech. Moving all extremities. Psych: Appears to be depressed, tearful (due to missing her baby per the patient ). IVs and Medications Medications Reviewed: Medications were reviewed in detail Lab and Diagnostics Result Diagram: 08/28/1633 08/28/16532 Additional Diagnostics Abdominal US read in the ER: Cholelithiasis location: gallbladder and bile duct Assessment & Plan This is a 20yo woman s/p childbirth 4 weeks ago who presented with worsening right-sided back pain and RUQ abdominal pain in the last 2 weeks. Patient was found to have Cholelithiasis without evidence for cholecystitis and Choledocholithiasis with associated extrahepatic bile duct dilatation on abdominal U/S. She also had markedly elevated LFTs that is likely secondary to choledocholithiasis and cholelithiasis. s/p ERCP on 08/28/2016 IMPRESSION: Endoscopic retrograde cholangiopancreatography status post sphincterotomy with balloon sweep and stone extraction. RECOMMENDATIONS: - General Surgery consult for cholecystectomy. Diet recommendation per Surgery team. - Continue to trend LFTs. - Pain management and fluid resuscitation per the primary care team. Thank you for allowing us participate in this patient's care. We will sign off at this point. Do not hesitate to contact us for any question or concern. Pain Evaluation: Adequate Pain Control GI Prophylaxis: Not indicated VTE Prophylaxis: Other (Hold anticoagulation for procedure/surgery ) Resuscitation Status: CPR: Attempt Resuscitation Attending Statement pt seen and examined agree with [id number] note above cont to follow LFT's to make sure they normalize cholecystectomy as per surgery team Donnie Gamez DO Aug 29, 2016 11:10 Lester Mackenzie MD Aug 31, 2016 10:43
--- NOTE | 2016-08-29 13:10 | CONS ---
[address] [address] CONSULTATION REPORT PATIENT: REGINA RICHMOND : 1995 MR#: [id number] ADMIT: 08/28/2016 JOB ID: [id number] DATE OF SERVICE: 08/29/2016 CHIEF COMPLAINT: Abdominal pain. HISTORY OF PRESENT ILLNESS: The patient is a 20-year-old woman who is three weeks . For the past two weeks, she developed increasing right upper quadrant pain radiating to her back, associated with nausea and vomiting. The pain started becoming worse over the past four days prior to admission and she came into the emergency department for evaluation. In the emergency department, she had an ultrasound which showed small mobile gallstones with a gallbladder wall thickness of 1.8 mm. The extrahepatic common bile duct was dilated to 9.4 mm and there was a 4 mm common bile duct stone noted. At the time of admission, her white blood cell count was 7.4, bilirubin 1.6, AST 525, ALT 537, alkaline phosphatase 514. She had a normal lipase. Gastroenterology was consulted, and yesterday she underwent ERCP with stone extraction. Today, she is feeling significantly better than when she came into the hospital, but she still does have some right upper quadrant pain radiating to her back. She does not have significant nausea. PAST MEDICAL HISTORY: History of alcohol abuse, history of cocaine and methamphetamine abuse. PAST SURGICAL HISTORY: None. MEDICATIONS: At home: None. ALLERGIES: No known drug allergies. SOCIAL HISTORY: Former smoker, quit one year ago, quit alcohol, methamphetamine, cocaine, marijuana one year ago. FAMILY HISTORY: Reviewed. Mother has lymphoma. REVIEW OF SYSTEMS: A 10-point review of systems is otherwise negative except as described in history of present illness. Specifically, no jaundice, no unplanned weight loss. PHYSICAL EXAMINATION: Body mass index 30.3, temperature 36.6, pulse 54, blood pressure 99/61, saturation 95% on room air. General: She is sitting up in bed, in no acute distress. HEENT: Sclerae are anicteric. Mucous membranes are moist. Neck: No lymphadenopathy. Chest: Clear to auscultation bilaterally. Heart: Regular rate and rhythm. No murmurs. Abdomen is soft, nondistended. She has abdominal wall laxity from recent . She has mild tenderness in the epigastrium and left upper quadrant, as well as some mild right upper quadrant tenderness. There is no guarding. There are no palpable masses. There are no hernias. Extremities: No edema: Neuro: No deficits. Psychiatric: Affect is appropriate. LABORATORIES: White blood cell count 5.8, hematocrit 35.1, total bilirubin 0.6. AST 132, ALT 307, alkaline phosphatase 375. ASSESSMENT AND PLAN: A 20-year-old woman with cholelithiasis and choledocholithiasis, status post endoscopic retrograde cholangiopancreatography. I recommend that she undergo cholecystectomy to prevent future episodes of choledocholithiasis or other gallbladder-related complications. Technical aspects of cholecystectomy were discussed. Risks of surgery were discussed, including, but not limited to bleeding, infection, injury to the bile ducts, conversion to open surgery. All her questions were answered. Informed consent was obtained. Hopefully, surgery will happen sometime later this afternoon.
--- NOTE | 2016-08-29 13:16 | NUR ---
Social Work- Brief Note Data: EMR reviewed. Pt is a 20 year old female admitted 08/28/16 for acute obstructive hepatitis per H&P. Pt's insurance is [employer]. Pt's PCP is Min Starkey MD. SW met with pt at bedside regarding discharge plan, SW role explained. Pt resides in [place] with her mother where she is independent with ADLs. Pt has a 5 week old baby. Pt uses no DME, drives. Pt declined information about DPOA at this time. Pt has a hx of substance use, SW spoke with pt regarding this. Pt denies any current use and denies any concerns about her history. Pt declined any resources as she is sober. Pt to discharge home with mother to transport via POV. No anticipated discharge needs, SW will continue to follow. Assessment: [place] independent [place] base. Plan: Pt to discharge home with mother to transport via POV. No anticipated discharge needs, SW will continue to follow. MANDA Proctor
[2016-08-29] MEDS ORDERED: Rocuronium 10 mg/mL 5 mL Inj ONE (14:34)
[2016-08-29] MEDS ORDERED: Ketamine 10 mg/mL 20 mL Inj ONE (14:34)
[2016-08-29] MEDS ORDERED: Neostigmine 1 mg/mL 10 mL Inj ONE (14:34)
[2016-08-29] MEDS ORDERED: Propofol 10,000 mCg/mL 20 mL Inj ONE (14:34)
[2016-08-29] MEDS ORDERED: Dexamethasone 4 mg/mL Inj ONE (14:34)
[2016-08-29] MEDS ORDERED: Glycopyrrolate 0.2 MG/ML 1mL Inj ONE (14:34)
[2016-08-29] MEDS ORDERED: Ondansetron 2 mg/mL 2 mL Inj ONE (14:34)
[2016-08-29] MEDS ORDERED: fentaNYL-PF 50 mCg/mL 2 mL Inj ONE (14:34)
--- NOTE | 2016-08-29 15:30 | NUR ---
Transfer to OR Gave report to OR nurse at 1443. She was taken via gurney to the OR about 1530. Care continues. Addendum: 08/29/16 at 1835 by AMBROCIO VALENCIA RN She came back to [facility] about 1820 after getting report from Susan BLANCO in the PACU. She was feeling the need to pump as her breasts felt engorged. She was given some privacy and time to do so. Unable to complete vitals or assessment at this time. Checked 4 abdominal lab sites which are clean, dry, and intact.
[2016-08-29] MEDS ORDERED: Lactated Ringer's 1,000 ML IV ONE (16:07)
--- NOTE | 2016-08-29 16:29 | PCM.HPANE ---
Patient Data Date of Service: Aug 29, 2016 Surgeon Admitting Provider:Joao Gorman MD Attending Provider:Joao Gorman MD Primary Care Physician:Other,Physician Other Provider: Reason for Visit Acute Obstructive Hepatitis W Choledochlolithiasis Ht/WT & BMI Height (Feet): 5 Height (Inches): 5.00 Weight (Kilograms): 82.700 Body Mass Index 30.00 Allergies Coded Allergies: No Known Allergies (Unverified , 08/27/16) Past Anesthesia History Anesthesia History: Denies:: Abnormal Airway, Anesthesia Reactions, Difficult Intubation, Fam Anesthesia Reaction, Fam Malignant Hypertherm, Malignant Hyperthermia Diabetes History Hx Diabetes?: No MRSA MRSA: No Medications Hypertension Medication: No Home Meds Incl Beta Chante: No No Active Prescriptions or Reported Meds History History of ENT Problems?: Yes HEENT History: Positive for:: Sinus Problem (seasonal allergies ) Denies:: Abnormal Airway Cataracts Difficult Intubation Dysphagia Glaucoma Hearing Problem TMJ Denture Type: None Teeth Condition: Within Normal Limits Hx of Heart Problems?: No Cardiovascular History: Denies:: Congestive Heart Failure Hypertension Hx of Respiratory Problem?: No Respiratory History: Denies:: Tuberculosis Hx Neurologic Problems?: No Hx of GI Problems?: Yes Hx of Problems?: No Female Hx: Denies:: Currently Endometriosis Pelvic Inflammatory Problems with Breasts? Hx Musculoskeletal Problems?: No Hx of Psycho/Social Problems?: Yes Psycho Social History: Positive for:: Anxiety Hx Depression Denies:: Bipolar Disorder Suicide Attempt Hx Surgeries?: No Hx Any Other Health Problems?: Yes Other History: Positive for:: Hospitalization ( ) Denies:: Cancer Thyroid Disease History Blood Transfusions: Positive for:: Accept Blood Products? Denies:: Blood Transfusions Hx Diabetes: No Hx Alcohol Use: Yes (history of daily drinking until a year ago)Hx Substance Use: Yes (meth, cocaine, marijuana over a year ago. She quit with family intervention before her ) Smoking Status: Former Smoker (used to smoke 4-6 cigarettes/day but quit a year ago) Have You Smoked inLast 12 mo: YesApprox How Many Cigarettes/day: 4/5 Stop/Bang Treated for Sleep Apnea?: No Do You Have a CPAP Machine?: No S-Snoring: Do You Snore Loudly: No T-Tired: feel tired, fatigued: No O-Obsered: Observed not breath: No P-Blood Pressure: treated: No B- Body Mass Index > 35 kg/m2: No A- Age over 50: No N- Neck Large Circumference: No G- Gender Male: No TREMAINE Total Score: 0 TREMAINE Risk Assessment: Low Risk, <3 Yes Risk Assessment Category Category 1A: Patient has history of documented sleep apnea, and HAS NOT received any narcotic, sedative or anesthesia administration during this stay. Category 1B: Patient has history of documented sleep apnea, and HAS received any narcotic , sedative or anesthesia administration during this stay Category 2: Patient has SUSPECTED Obstructive Sleep Apnea, and HAS received any narcotic , sedative or anesthesia administration during this stay. Category 3: Patient has SUSPECTED Obstructive Sleep Apnea and HAS NOT received narcotic, sedative or anesthesia administration during this stay. Category 4: Outpatient in Procedural Areas with known sleep apnea or who screen positive for High Risk via the STOP/BANG questionnaire. Low Risk, <3 Yes Exam Exam General Appearance: Alert, Oriented X3, Cooperative, No Acute Distress HEENT/AIRWAY: MP 2 Lungs: Clear to Auscultation Heart: Exam Unremarkable, Regular Rate/Rhythm, Normal S1, Normal S2, No Murmurs /Rubs/Gallops Meds/Labs/Diagnostics Labs Test 08/27/16 20:20 08/27/16 20:45 08/27/16 22:22 08/28/16 05:33 Magnesium Level 2.1mg/dL (1.6-2.6) Lipase 29U/L (13-60) Urine Color Ronel (YELLOW) Urine Appearance Clear (CLEAR,HAZY) Urine pH 7.5 (5.0-8.0) Urine Specific [place] 1.015 (1.003-1.035) Urine Protein Tracemg/dL (NEG,TRACE) Urine Glucose (UA) 100mg/dL (NEGATIVE) Urine Ketones 40mg/dL (NEGATIVE) Urine Occult Blood Negative (NEGATIVE) Urine Nitrite Negative (NEGATIVE) Urine Bilirubin Moderate (NEGATIVE) Urine Ictotest Positive (Negative) Urine Urobilinogen Normalmg/dL (NORMAL) Urine Leukocyte Esterase Trace (NEGATIVE) Urine RBC 0-2/hpf (0-2) Urine WBC 6-10/hpf (0-5) Urine Epithelial Cells Few/hpf (NONE-MOD) Urine Crystals None seen (NONE SEEN) Urine Bacteria Few/hpf (NONE-FEW) Urine Hyaline Casts None/lpf (NONE) Urine Granular Casts None seen (NONE SEEN) Urine Waxy Casts None seen (NONE SEEN) Urine Red Blood Cell Casts None seen (NONE SEEN) Urine White Blood Cell Casts None seen (NONE SEEN) Urine Mucus Present (None Seen) Urine Trichomonas None seen (NONE SEEN) Urine Yeast None (NONE SEEN) Urinalysis Comment None Urine Culture Reflexed Not indicated HCG Beta Subunit < 0.500mIU/mL White Blood Count 5.8th/mm3 (3.8-10.1) Red Blood Count 4.02mil/mm3 (3.90-5.20) Hemoglobin 10.6g/dL (12.0-15.6) Hematocrit 35.1% (35.0-46.0) Mean Corpuscular Volume 87.3fL (81-100) Mean Corpuscular Hemoglobin 26.4pg (27.0-35.0) Mean Corpuscular Hemoglobin Concent 30.2% (32.0-37.0) Red Cell Distribution Width 14.9% (12.3-15.4) Platelet Count 318bil/L (150-400) Neutrophils (%) (Auto) 42.5% (40-74) Lymphocytes (%) (Auto) 41.2% (14-46) Monocytes (%) (Auto) 12.2% (4-12) Eosinophils (%) (Auto) 2.4% (0-5) Basophils (%) (Auto) 1.4% (0-3) Sodium Level 143mEq/L (134-144) Potassium Level 4.0mEq/L (3.5-5.2) Chloride Level 106mEq/L (97-108) Carbon Dioxide Level 23mmol/L (18-29) Blood Urea Nitrogen 5mg/dL (6-20) Creatinine 0.54mg/dL (0.57-1.00) Estimat Glomerular Filtration Rate 208mL/min (>59) Glucose Level 83mg/dL (60-99) Calcium Level 8.8mg/dL (8.5-10.1) Test 08/29/16 05:20 Total Bilirubin 0.6mg/dL (0.0-1.2) Direct Bilirubin 0.2mg/dL (0.0-0.3) Aspartate Amino Transf (AST/SGOT) 132U/L (0-50) Alanine Aminotransferase (ALT/SGPT) 307U/L (0-32) Alkaline Phosphatase 375U/L (25-150) Total Protein 5.9g/dL (6.4-8.4) Albumin 3.5g/dL (3.4-5.0) Plan Impression Patient chart reviewed, patient interviewed and anesthestic plan with risks, benefits, and alternatives discussed, and informed consent obtained. NPO per Anesth. Guidelines: Yes Anesthetic Plan: GA Bene/Risks/Altern/Consents: Yes HP Complete Prior to Induction: Yes Howie Rosas DO Aug 29, 2016 16:29
[2016-08-29] MEDS ORDERED: Bupivacaine-MPF 0.25%/EPI 30 mL Inj INJ ONE (16:30)
--- NOTE | 2016-08-29 17:09 | PCM.SURGOP ---
Surgical Operative Report Date of Service: Aug 29, 2016 Pre Operative Diagnosis Cholelithiasis, choledocholithiasis Post Operative Diagnosis Same Procedure: Laparoscopic cholecystectomy Surgeon and Quarter Folder: Surgeon: Nemesio Hairston MD Assistants: Noel Mortensen PA-C Indication for Procedure 20-year-old woman who is 3 weeks , who presented to the hospital with 4 days of severe increasing right upper quadrant pain radiating to her back, associated with nausea and vomiting. Her initial workup was consistent with cholelithiasis but also choledocholithiasis with a 4 mm common bile duct stone, and elevated liver function tests. She underwent ERCP yesterday, with common bile duct stone extraction. Her liver function tests were improved today, as was her pain. After discussion risks and benefits, she agreed to proceed with laparoscopic cholecystectomy. Findings: There was mild chronic cholecystitis. Her cystic duct was large. Procedure Details After smooth induction of general endotracheal anesthesia, the patient was placed in the supine position with the right arm tucked. A procedural pause was performed according to the SCOAP checklist, and all were found to be in agreement. A curvilinear infraumbilical incision was made. Dissection was carried down with electrocautery until the midline fascia was incised vertically, and the peritoneal cavity entered without difficulty. Pneumoperitoneum was established. Inspection revealed some inflammatory adhesions to the fundus of the gallbladder. 3 additional ports were placed under direct visualization. One was placed in the midline epigastrium, and 2 in the right subcostal region. Adhesions were taken down from the gallbladder fundus with electrocautery. The fundus of the gallbladder was then grasped and retracted cephalad. The infundibulum of the gallbladder was grasped. The peritoneum was incised. The cystic artery was doubly clipped and divided. The critical view was obtained using the infundibular technique. A clip was placed on the gallbladder side of the cystic duct, 2 clips were placed on the common bile duct side of the cystic duct, and the duct was divided with scissors. The cause the cystic duct was large in caliber, and the hemoclips barely occluded it, the cystic duct stump closure was reinforced with a PDS Endoloop. The remainder of the gallbladder was dissected out of the gallbladder fossa with electrocautery. The gallbladder was placed into an Endo Catch bag and removed from the umbilical port site. It was passed off the field and sent for permanent pathology. The gallbladder fossa was inspected and irrigated. Hemostasis was adequate, and there was no bile leak. The ports were removed under direct visualization and pneumoperitoneum was released. The fascia of the umbilical port site was closed using an 0 Vicryl suture in a [id number]. The skin incisions were closed using running 4-0 Monocryl subcuticular stitches. Steri-Strips and sterile dressings were applied. At the end of the case all needle and sponge counts were correct 2. The patient was awakened from anesthesia without difficulty, and taken to the recovery room in satisfactory condition, having tolerated the procedure well. Complications There were no periprocedural complications identified. Surgical Specimen Removed: Yes Specimen sent to Pathology: Yes Surgical Specimen description: Gallbladder Anesthetic Plan: GA Grafts, Implants: None Output, Estimated Blood Loss: 10 Blood Administration during strong: No Drains: None Catheters: None Nemesio Hairston MD Aug 29, 2016 17:09
[2016-08-29] MEDS: fentaNYL-PF 50 mCg/mL 2 mL Inj ONE ×2 (17:35→17:55)
[2016-08-29] MEDS ORDERED: HYDROmorphone 1 mg/mL Inj ONE (17:37)
[2016-08-30] MEDS: 0.9% Sodium Chloride 1,000 ML IV SCH ×2 (02:01→12:01)
--- NOTE | 2016-08-30 02:59 | NUR ---
Pain Patient rating ABD pain between 8-10/10. PRN orders for Oxycodone PO and Morphine IVP that patient is requesting regularly. Noted to be resting with eyes closed with each reassessment and during Q1hour rounding.
[2016-08-30] MEDS: HYDROmorphone 0.5 mg/0.5 mL iSecure Syringe IVPUSH PRN ×2 (04:15→07:25)
[2016-08-30 04:25] VITALS: BP 98/59; PULSE 46; RESP 20; O2SAT 94
[2016-08-30] MEDS: Ondansetron 2 mg/mL 2 mL Inj IVPUSH PRN ×2 (05:36→07:24)
[2016-08-30 06:09] LABS: BASOPHILS % (AUTO) 0.1 % (0-3); EOSINOPHILS % (AUTO) 0.1 % (0-5); MONOCYTES % (AUTO) 7.5 % (4-12); Mean Corpuscular Hemoglobin 26.5 pg (27.0-35.0); Mean Corpuscular Volume 88.4 fL (81-100); Platelet Count 327 bil/L (150-400)
--- NOTE | 2016-08-30 11:08 | PCM.DIMED ---
Discharge Instructions Date of Service Aug 30, 2016 Dates of Hospitalization Aug 28, 2016 at 00:41 Discharge Diagnosis Discharge Diagnosis Cholelithiasis, choledocholithiasis S/P ERCP and Laparoscopic cholecystectomy Diet No restrictions Activity No restrictions Call your provider Fever or Chills, Vomitting, Other (worsening pain) Patient Instructions Follow up as directed by the surgeon Aminata Tucker MD Aug 30, 2016 11:08
[2016-08-30] MEDS ORDERED: OXYC5TAB72 PO (11:12)
--- NOTE | 2016-08-30 11:18 | PCM.DC.MED ---
Discharge Summary Date of Service Aug 30, 2016 Dates of Hospitalization Date of Hospital Admission Aug 28, 2016 at 00:41 Date of Discharge: Aug 30, 2016 Providers: Admitting Physician: Joao Gorman MD Primary Care Physician: Other,Physician Attending Physician: Joao Gorman MD Diagnosis at Time of Discharge Diagnosis at Time of Discharge Cholelithiasis, choledocholithiasis S/P ERCP and Laparoscopic cholecystectomy Consultations GI and surgery Procedures Other Diagnostics Abdominal US read in the ER: Cholelithiasis location: gallbladder and bile duct Brief History GASTROENTEROLOGY CONSULTATION: Trinh Powell is a 20yo woman with no significant PMH who presented with worsening right-sided back pain and RUQ abdominal pain. She reports to have intermittent back pain throughout the 3rd trimester, but she assumed it was contractions. She had a childbirth 4 weeks ago, , uneventful and . However, the back pain and abdominal pain has progressively worsened in the last 2 weeks. The back pain is worse than the abdominal pain. It is also associated with nausea, vomiting, and poor appetite. Patient states that she cannot eat anything without feeling nauseous or vomiting in the last 4 days. This pain she reports is worse than childbirth. Patient denies any fever, chills , jaundice, CP, hematemesis, hematochezia, diarrhea, or constipation. She does not take any medication and denies NSAIDs use. In the ER she was found to have normal vital signs, but labs revealed transaminitis (AST 525, ALT 537, Alk Phos 514). Total Bili was 1.6 on admission. Lipase 29. Abdominal U/S showed Cholelithiasis without evidence for cholecystitis and Choledocholithiasis with associated extrahepatic bile duct dilatation. GI service was consulted for an ERCP and then surgery was consulted for lap kai. Hospital Course This is a 20yo woman s/p childbirth 4 weeks ago who presented with worsening right-sided back pain and RUQ abdominal pain in the last 2 weeks. Patient was found to have Cholelithiasis without evidence for cholecystitis and Choledocholithiasis with associated extrahepatic bile duct dilatation on abdominal U/S. She also had markedly elevated LFTs that is likely secondary to choledocholithiasis and cholelithiasis. ERCP was done 08/28/2016 IMPRESSION: Endoscopic retrograde cholangiopancreatography status post sphincterotomy with balloon sweep and stone extraction. Surgery was then consulted and lap kai was done 08/29/16 On morning of discharge patient says she has been seen by surgery and they told her that from their point of view she could be discharged home today. She is still having right upper quadrant pain but feels this will be tolerable at home , especially with a slightly increased dose of oxycodone. Exam Vital Signs (Last) Date Time Temp Pulse Resp B/P Pulse Ox O2 Delivery O2 Flow Rate FiO2 08/30/16 04:25 36.7 46 20 98/59 94 Room Air 08/29/16 18:10 2 Exam General: Alert and oriented, no acute distress Heart: Regular Lungs: Clear Abdomen: Soft, mild right upper quadrant tenderness, bowel tones present Extremities: No pedal edema Test 08/27/16 20:20 08/27/16 20:45 08/27/16 22:22 08/29/16 05:20 Magnesium Level 2.1mg/dL (1.6-2.6) Lipase 29U/L (13-60) Urine Color Ronel (YELLOW) Urine Appearance Clear (CLEAR,HAZY) Urine pH 7.5 (5.0-8.0) Urine Specific [place] 1.015 (1.003-1.035) Urine Protein Tracemg/dL (NEG,TRACE) Urine Glucose (UA) 100mg/dL (NEGATIVE) Urine Ketones 40mg/dL (NEGATIVE) Urine Occult Blood Negative (NEGATIVE) Urine Nitrite Negative (NEGATIVE) Urine Bilirubin Moderate (NEGATIVE) Urine Ictotest Positive (Negative) Urine Urobilinogen Normalmg/dL (NORMAL) Urine Leukocyte Esterase Trace (NEGATIVE) Urine RBC 0-2/hpf (0-2) Urine WBC 6-10/hpf (0-5) Urine Epithelial Cells Few/hpf (NONE-MOD) Urine Crystals None seen (NONE SEEN) Urine Bacteria Few/hpf (NONE-FEW) Urine Hyaline Casts None/lpf (NONE) Urine Granular Casts None seen (NONE SEEN) Urine Waxy Casts None seen (NONE SEEN) Urine Red Blood Cell Casts None seen (NONE SEEN) Urine White Blood Cell Casts None seen (NONE SEEN) Urine Mucus Present (None Seen) Urine Trichomonas None seen (NONE SEEN) Urine Yeast None (NONE SEEN) Urinalysis Comment None Urine Culture Reflexed Not indicated HCG Beta Subunit < 0.500mIU/mL Direct Bilirubin 0.2mg/dL (0.0-0.3) Test 08/30/16 05:55 White Blood Count 8.6th/mm3 (3.8-10.1) Red Blood Count 3.89mil/mm3 (3.90-5.20) Hemoglobin 10.3g/dL (12.0-15.6) Hematocrit 34.4% (35.0-46.0) Mean Corpuscular Volume 88.4fL (81-100) Mean Corpuscular Hemoglobin 26.5pg (27.0-35.0) Mean Corpuscular Hemoglobin Concent 29.9% (32.0-37.0) Red Cell Distribution Width 15.1% (12.3-15.4) Platelet Count 327bil/L (150-400) Neutrophils (%) (Auto) 69.0% (40-74) Lymphocytes (%) (Auto) 23.1% (14-46) Monocytes (%) (Auto) 7.5% (4-12) Eosinophils (%) (Auto) 0.1% (0-5) Basophils (%) (Auto) 0.1% (0-3) Sodium Level 140mEq/L (134-144) Potassium Level 4.3mEq/L (3.5-5.2) Chloride Level 100mEq/L (97-108) Carbon Dioxide Level 19mmol/L (18-29) Blood Urea Nitrogen 5mg/dL (6-20) Creatinine 0.51mg/dL (0.57-1.00) Estimat Glomerular Filtration Rate 223mL/min (>59) Glucose Level 78mg/dL (60-99) Calcium Level 9.4mg/dL (8.5-10.1) Total Bilirubin 0.5mg/dL (0.0-1.2) Aspartate Amino Transf (AST/SGOT) 65U/L (0-50) Alanine Aminotransferase (ALT/SGPT) 222U/L (0-32) Alkaline Phosphatase 343U/L (25-150) Total Protein 6.4g/dL (6.4-8.4) Albumin 3.9g/dL (3.4-5.0) Discharge Medications As needed oxyCODONE (oxyCODONE) 5 Mg Tablet 5-10 MG PO q 3-4 hr PRN PRN For Moderate Pain Prescribed by: IFTIKHAR MARTINES MD Followup Plan Discharge Diet: No restrictions Discharge Activity: No restrictions Patient Instructions Follow up as directed by the surgeon Iftikhar Martines MD Aug 30, 2016 11:18
--- NOTE | 2016-08-30 11:18 | PROG NOTE ---
[address] [address] PROGRESS NOTE PATIENT: REGINA RICHMOND : 1995 MR#: [id number] ADMIT: 08/28/2016 JOB ID: [id number] DATE: 08/30/2016 SUBJECTIVE: Postop day one laparoscopic cholecystectomy by Dr. Hairston. She is doing quite well. Her main concern is that she is having some bloody vaginal discharge. OBJECTIVE: She is afebrile, stable vital signs. Her abdomen is soft, nontender, and her dressings are intact without sign of infection. Her white count is 8.6, her hematocrit is 34.4. Chemistries are normal. Her bilirubin is normal, and her liver function tests continue to normalize. IMPRESSION AND PLAN: She is doing quite well from a general surgery point of view. Can go home, with followup in 2-[address] Hairston or the [facility]. Anticipate discharge per Hospitalist service.
--- NOTE | 2016-08-30 12:04 | NUR ---
Social Work- Readiness for Discharge Data: EMR reviewed. Pt is on day 2 of hospitalization for acute obstructive hepatitis per H&P. Pt is POD 1. Pt is not medically stable for discharge. Pt is transitioning to PO meds prior to discharge. Pt to discharge home with mother to transport via POV. No anticipated discharge needs. SW will continue to follow. Assessment: Pt who is independent at base. Plan: Pt to discharge home with mother to transport via POV. No anticipated discharge needs. SW will continue to follow. MANDA Proctor
[2016-08-30 12:31] VITALS: BP 103/58; PULSE 51; RESP 18; O2SAT 95
--- NOTE | 2016-08-30 16:05 | NUR ---
Discharge Pt discharged at 1435 walking to private vehicle with friends. Pt had c/o pain 10/11 and premedicated prior to discharge. VSS, LOPEZ, A&O x 3. All dressings CD&I. IV removed intact. Pt has discharge instructions, care notes and rx, all questions answered and has all belongings.
--- NOTE | 2016-09-01 14:15 | PATH ---
SURGICAL PATHOLOGY Attending Physician:Ligia Padgett CASE STATUS: Signed Out PATIENT NAME: REGINA RICHMOND PID: [id number] : 1995 DATE COLLECTED:08/29/2016 00:00 SPECIMEN: Gallbladder CLINICAL HISTORY: CHOLELITHIASIS 1). GALLBLADDER FINAL DIAGNOSIS: 1.GALLBLADDER: CHOLELITHIASIS WITH ASSOCIATED CHRONIC ACTIVE CHOLECYSTITIS. ICD10 CODE K80.66 GROSS DESCRIPTION: Received in formalin, labeled with the patient' s name and "gallbladder", is one gallbladder measuring 8.0 x 2.5 x 2.0 cm. The serosal surface is smooth and glistening. Tiara are located at the cystic duct region. Puncturing of the gallbladder releases dark green, thick, mucoid bile. Further sectioning reveals the wall to measure 0.3 cm in thickness. Within the cavity are multiple green, multifaceted stones ranging in size from 0.1 x 0.1 x 0.1 cm to 0.3 x 0.3 x 0.3 cm. The stones are easily crushed to reveal a yellow crystalline array. The mucosal surface is dark green and smooth. [employer] sections are submitted in cassette 1A. ([id number]) MICRO DESCRIPTION: See diagnosis. ICD-9 CODES: CPT CODES: 1: 75855 Electronically Signed Out Kalyan Calvin MD [facility] Pathology [facility] [address] [facility], [place] [address] Technical component performed at [facility], [facility] [address], [place], [address]
== END 2016-08-30 14:35 | disposition home or self-care (01) | DRG 419 ==
LOC: SED 19:56 → OSC 08-28 00:41
PROVIDERS: ADMIT Hospitalist; ATTEND Hospitalist
PROC: 0F798ZZ Dilation of Common Bile Duct, Via Natural or Artificial Opening Endoscopic (ICD-10-PCS; 2016-08-28)
PROC: 0FC98ZZ Extirpation of Matter from Common Bile Duct, Via Natural or Artificial Opening Endoscopic (ICD-10-PCS; principal; 2016-08-28 13:30)
PROC: 0FT44ZZ Resection of Gallbladder, Percutaneous Endoscopic Approach (ICD-10-PCS; 2016-08-29)
DX: K80.50 Calculus of bile duct without cholangitis or cholecystitis without obstruction (principal); O99.63 Diseases of the digestive system complicating the puerperium; R74.0 Nonspecific elevation of levels of transaminase and lactic acid dehydrogenase [LDH]